=== PATIENT | female | born 1935 | race American Indian/Alaskan Native ===

== ENCOUNTER 2017-09-21 13:06 | Emergency (ER) | payer MEDICARE ==
[2017-09-21 13:12] VITALS: BMI 27.9
[2017-09-21 13:18] VITALS: BP 185/92; PULSE 79; TEMP 98.3; O2SAT 97
[2017-09-21 13:42] VITALS: RESP 16
--- NOTE | 2017-09-21 14:03 | RAD ---
Chest x-ray single frontal view History: Shortness of breath. Comparison: 08/24/2015 Findings: Mild patchy increased markings at the left lung base. Few small scattered nodular densities at the left lung base. Calcification at the aortic knob. Tortuous aorta. Degenerative changes in the spine and shoulders. Impression: Mild patchy increased markings at the left lung base. Few small scattered nodular densities at the left lung base. Calcification at the aortic knob. Tortuous aorta.
--- NOTE | 2017-09-21 14:14 | C.PDOC ---
History Of Present Illness 82 year old female with PMHx of anxiety presents to the ED seeking Xanax refill for her prescription that ran out. Patient came to the ED by taxi. Patient's record on [facility] was reviewed and showed patient had an extensive Xanax and Percocet record with Dr. Donovan and 3 other providers. Patient looks anxious, refused and blood tests. Time Seen by Provider: 09/21/17 13:35 Chief Complaint (Nursing): Shortness Of Breath History Per: Patient History/Exam Limitations: no limitations Onset/Duration Of Symptoms: Days Current Symptoms Are (Timing): Still Present Suicide/Self Injury Attempted (Context): None Modifying Factor(s): None Severity: None Associated Symptoms: Anxiety Recent travel outside of the [place]: No Additional History Per: Patient Past Medical History Reviewed: Historical Data, Nursing Documentation, Vital Signs Vital Signs: Last Vital Signs Temp 98.3 F 09/21/17 13:13 Pulse 79 09/21/17 13:13 Resp 16 09/21/17 13:39 BP 185/92 H 09/21/17 13:13 Pulse Ox 97 09/21/17 14:45 - Medical History PMH: Anemia, Anxiety, Arthritis, Depression, Diabetes, HTN, Hypercholesterolemia , Malignancy (Right breast cancer) Denies: Chronic Kidney Disease Surgical History: No Surg Hx - [facility] Procedures BREAST DX PROCEDURE NEC (01/05/13) CLOSED ENDOSCOPIC BIOPSY OF LARGE INTESTINE (11/02/12) ESOPHAGOGASTRODUODENOSCOPY [EGD] W/CLOSED BIOPSY (04/04/14) LOCAL EXCIS BREAST LES (01/05/13) OPEN BIOPSY OF BREAST (02/07/13) PERCUTAN NEEDLE BIOPSY OF BREAST (12/16/12) UNILAT SIMPLE MASTECTOMY (02/07/13) VENOUS CATHETERIZATION NEC (10/26/13) X-RAY NEC AND NOS (01/05/13) Family History: States: Unknown Family Hx - Social History Hx Tobacco Use: No Hx Alcohol Use: No Hx Substance Use: No - Immunization History Hx Tetanus Toxoid Vaccination: No Hx Influenza Vaccination: No Hx Pneumococcal Vaccination: Yes Review Of Systems Constitutional: Negative for: Fever, Chills Cardiovascular: Negative for: Chest Pain Respiratory: Negative for: Shortness of Breath Gastrointestinal: Negative for: Abdominal Pain Skin: Negative for: Rash Neurological: Negative for: Weakness, Numbness Psych: Positive for: Anxiety Physical Exam - Physical Exam Appears: Non-toxic, Other (Anxious) Skin: Normal Color, Warm, Dry Head: Atraumatic, Normacephalic Eye(s): bilateral: Normal Inspection Nose: No Discharge Oral Mucosa: Moist Neck: Normal ROM, Supple Chest: Symmetrical Cardiovascular: Rhythm Regular, No Murmur Respiratory: Normal Breath Sounds, No Rales, No Rhonchi, No Wheezing Gastrointestinal/Abdominal: Soft, No Tenderness, No Guarding, No Rebound Extremity: Normal ROM, No Tenderness, No Swelling Neurological/Psych: Oriented x3, Normal Speech, Normal Cognition Gait: Steady ED Course And Treatment O2 Sat by Pulse Oximetry: 97 (On RA) Pulse Ox Interpretation: Normal - Radiology CXR: Interpreted by Me, Viewed By Me CXR Interpretation: Yes: No Acute Disease. No: Infiltrates Medical Decision Making Medical Decision Making: Impression: anxiety Plan: * EKG * Labs * refused * CXR * Xanax 0.5 mg PO * UA * showed 19 WBCs Patient was discussed with Dr. Donovan who was OK with decline ED treatment, patient will f/u outpatient. Patient agrees to 10 tabs of xanax prescription with the understanding there are not refills provided in the ED dementia, xanax ran out of xanax, came by cab for a dose and refills (demonstrating purposeful high function) refusing workup and wants to be d/c immediately. ok w PMD to d/c and opt f/u. Disposition Doctor Will See Patient In The: Office Counseled Patient/Family Regarding: Studies Performed, Diagnosis - Disposition Referrals: Franco Donovan MD [Staff Provider] - Disposition: HOME/ ROUTINE Disposition Time: 14:12 Condition: GOOD Additional Instructions: please follow-up with Dr. Donovan for further treatment and evaluation Prescriptions: Alprazolam [Xanax] 0.5 mg PO BID PRN #10 tab PRN Reason: Anxiety Instructions: Anxiety, Adult (DC) Forms: [facility] (Upper Sorbian) - Clinical Impression Clinical Impression: Anxiety, Benzodiazepine withdrawal - Scribe Statement The provider has reviewed the documentation as recorded by the Scribe Sean Ríos All medical record entries made by the Scribe were at my direction and personally dictated by me. I have reviewed the chart and agree that the record accurately reflects my personal performance of the history, physical exam, medical decision making, and the department course for this patient. I have also personally directed, reviewed, and agree with the discharge instructions and disposition.
[2017-09-21 14:25] LABS: SQUAMOUS EPITHIAL 19 /hpf (0-5); URINE BACTERIA OCC (<OCC); URINE BILIRUBIN NEGATIVE (NEGATIVE); URINE BLOOD 1+ (NEGATIVE); URINE CLARITY Hazy (Clear); URINE COLOR Yellow (YELLOW); URINE GLUCOSE (UA) 1+ mg/dL (Normal); URINE LEUKOCYTE ESTERASE 3+ Leu/uL (Negative); URINE PROTEIN 2+ mg/dL (NEGATIVE); URINE UROBILINOGEN NORMAL mg/dL (0.2-1.0)
[2017-09-21 14:27] LABS: URINE AMORPHOUS SEDIMENT OCC /ul (<OCC)
[2017-09-21 14:38] LABS: BARBITURATES, UR NEGATIVE (NEGATIVE); BENZODIAZEPINES, UR NEGATIVE (NEGATIVE); OPIATES, UR NEGATIVE (NEGATIVE); PHENCYCLIDINE, UR NEGATIVE (NEGATIVE)
--- NOTE | 2017-09-22 11:17 | CARD ---
APPROVED REPORT EKG Measurement Heart [id number] [id number] [id number] <Conclusion> Sinus rhythm with marked sinus arrhythmia Moderate voltage criteria for LVH, may be normal variant Borderline ECG
== END 2017-09-21 14:25 | disposition home or self-care (01) ==
LOC: C.ER 13:06
DX: F41.9 Anxiety disorder, unspecified (principal); F19.939 Other psychoactive substance use, unspecified with withdrawal, unspecified; I10 Essential (primary) hypertension; E11.9 Type 2 diabetes mellitus without complications; Z87.891 Personal history of nicotine dependence
CPT/HCPCS: 71045; 81001; 93005; 99284; G0480

== ENCOUNTER 2018-03-02 15:39 | Inpatient (IN) | payer MEDICARE ==
[2018-03-02 16:23] VITALS: BMI 30.9
--- NOTE | 2018-03-02 16:36 | C.PDOC ---
Time Seen by Provider: 03/02/18 15:45 Chief Complaint (Nursing): Dizziness/Lightheaded Past Medical History Vital Signs: Last Vital Signs Temp 98.8 F 03/02/18 15:51 Pulse 71 03/02/18 16:15 Resp 20 03/02/18 16:15 BP 156/84 H 03/02/18 16:15 Pulse Ox 98 03/02/18 16:15 - Medical History PMH: Anemia, Anxiety, Arthritis, Depression, Diabetes, HTN, Hypercholesterolemia , Malignancy (Right breast cancer) Denies: Chronic Kidney Disease - [facility] Procedures BREAST DX PROCEDURE NEC (01/05/13) CLOSED ENDOSCOPIC BIOPSY OF LARGE INTESTINE (11/02/12) ESOPHAGOGASTRODUODENOSCOPY [EGD] W/CLOSED BIOPSY (04/04/14) LOCAL EXCIS BREAST LES (01/05/13) OPEN BIOPSY OF BREAST (02/07/13) PERCUTAN NEEDLE BIOPSY OF BREAST (12/16/12) UNILAT SIMPLE MASTECTOMY (02/07/13) VENOUS CATHETERIZATION NEC (10/26/13) X-RAY NEC AND NOS (01/05/13) Family History: States: Unknown Family Hx - Social History Hx Tobacco Use: No Hx Alcohol Use: No Hx Substance Use: No - Immunization History Hx Tetanus Toxoid Vaccination: No Hx Influenza Vaccination: No Hx Pneumococcal Vaccination: Yes ED Course And Treatment O2 Sat by Pulse Oximetry: 98 Disposition - Disposition Forms: [facility] (Azeri)
--- NOTE | 2018-03-02 16:38 | C.PDOC ---
History Of Present Illness 83-year-old female, PMHx includes Hypertension, hypercholesterolemia and mastectomy, presents to the emergency department with complaints of dizziness and light headedness. Pt is noted to be more confused by staff respiratory therapist. Patient is currently complaining of headache since she took medication last night, given to her by PMD. She denies any shortness of breath, nausea/vomiting, abdominal pain, numbness/weakness or any other associated symptoms. No other complaints at this time. Time Seen by Provider: 03/02/18 15:45 Chief Complaint (Nursing): Dizziness/Lightheaded Past Medical History Reviewed: Historical Data, Nursing Documentation, Vital Signs Vital Signs: Last Vital Signs Temp 98.8 F 03/02/18 15:51 Pulse 71 03/02/18 16:15 Resp 20 03/02/18 16:15 BP 156/84 H 03/02/18 16:15 Pulse Ox 98 03/02/18 17:53 - Medical History PMH: Anemia, Anxiety, Arthritis, Depression, Diabetes, HTN, Hypercholesterolemia , Malignancy (Right breast cancer) Denies: Chronic Kidney Disease - [facility] Procedures BREAST DX PROCEDURE NEC (01/05/13) CLOSED ENDOSCOPIC BIOPSY OF LARGE INTESTINE (11/02/12) ESOPHAGOGASTRODUODENOSCOPY [EGD] W/CLOSED BIOPSY (04/04/14) LOCAL EXCIS BREAST LES (01/05/13) OPEN BIOPSY OF BREAST (02/07/13) PERCUTAN NEEDLE BIOPSY OF BREAST (12/16/12) UNILAT SIMPLE MASTECTOMY (02/07/13) VENOUS CATHETERIZATION NEC (10/26/13) X-RAY NEC AND NOS (01/05/13) Family History: States: No Known Family Hx - Social History Hx Tobacco Use: No Hx Alcohol Use: No Hx Substance Use: No - Immunization History Hx Tetanus Toxoid Vaccination: No Hx Influenza Vaccination: No Hx Pneumococcal Vaccination: Yes Review Of Systems Constitutional: Negative for: Fever Cardiovascular: Positive for: Light Headedness Respiratory: Negative for: Shortness of Breath Gastrointestinal: Negative for: Nausea, Vomiting, Abdominal Pain Neurological: Positive for: Headache, Dizziness Physical Exam - Physical Exam Appears: Non-toxic, No Acute Distress Skin: Normal Color, Warm, Dry, No Rash Head: Atraumatic, Normacephalic Eye(s): bilateral: Normal Inspection, PERRL Nose: Normal Oral Mucosa: Moist Lips: Normal Appearing Neck: Normal ROM Cardiovascular: Rhythm Regular, No Murmur Respiratory: Normal Breath Sounds, No Accessory Muscle Use Gastrointestinal/Abdominal: Soft, No Tenderness Neurological/Psych: Normal Speech, Normal Cranial Nerves, No Cerebellar Signs, Normal Motor, Normal Sensation, Other (A&Ox2. ) ED Course And Treatment - Laboratory Results Result Diagrams: 03/02/18 17:23 03/02/18 17:23 ECG: Interpreted By Me, Viewed By Me ECG Rhythm: Sinus Rhythm ECG Interpretation: No Acute Changes Rate From EC O2 Sat by Pulse Oximetry: 98 (RA) Pulse Ox Interpretation: Normal - CT Scan/US CT head Other Rad Studies (CT/US): Read By Radiologist, Radiology Report Reviewed CT/US Interpretation: Accession No. : [id number]. Patient Name / ID : MIGEL HERRERA / [id number]. Exam Date : 03/02/2018 16:31:40 ( Approved ). Study Comment : Sex / Age : F / 83Y. Creator : Rosemary Sutherland. Dictator : Joseph Frost MD. Shaker Operator : Stock Drier Tender : Joseph Frost MD. Approver2 : Report Date : 03/02/2018 16:36:52. My Comment : . Date of service: 03/02/2018. PROCEDURE: CT HEAD WITHOUT CONTRAST. HISTORY: Code Stroke. COMPARISON: Comparison made with prior CT scan brain 08/24/2015. TECHNIQUE: Axial computed tomography images were obtained through the head/ brain without intravenous contrast. Radiation dose: Total exam DLP = 981.02 mGy-cm. This CT exam was performed using one or more of the following dose reduction techniques: Automated exposure control, adjustment of the mA and/or kV according to patient size, and/or use of iterative reconstruction technique. FINDINGS: HEMORRHAGE: No acute parenchymal, subarachnoid or extra-axial hemorrhage. BRAIN: Re- demonstrated are mild diffuse/confluent chronic periventricular white matter ischemic changes that extend peripherally into the deep and to a lesser degree subcortical white matter both cerebral hemispheres. . There may be some extension of these changes into the white matter tracts of both basal nuclei. Note that the possibility of a small hyperacute infarct cannot be excluded on this exam. Clinical correlation recommended. No obvious parenchymal nor extra-axial mass or collection of identified on this noncontrast study. Moderate generalized volume loss. Mild vascular calcifications both carotid siphons. VENTRICLES: Unremarkable. No hydrocephalus. CALVARIUM: Unremarkable. PARANASAL SINUSES: .Frontal sinuses are hypoplastic the on the left and atretic on the right. No significant mucoperiosteal inflammatory changes. MASTOID AIR CELLS: Unremarkable as visualized. No inflammatory changes. OTHER FINDINGS: None. IMPRESSION: Re- demonstrated are mild diffuse/confluent chronic periventricular white matter ischemic changes that extend peripherally into the deep and to a lesser degree subcortical white matter both cerebral hemispheres. . There may be some extension of these changes into the white matter tracts of both basal nuclei. Note that the possibility of a small hyperacute infarct cannot be excluded on this exam. Clinical correlation recommended. Moderate generalized volume loss. Findings discussed with Dr. Goodwin at approximately 4:42 p.m. with written down and read back verification. NIHSS Stroke Scale 2 - How Severe is the Stroke Level of Consciousness: 0=Alert LOC to Questions: 0=Both comments correct LOC to commands: 0=Obeys both correctly Best Gaze: 0=Normal Visual: 0=No visual loss Facial: 0=Normal Motor Arm - Left: 0=No drift Motor Arm - Right: 0=No drift Motor Leg - Left: 0=No drift Motor Leg - Right: 0=No drift Limb Ataxia: 0=Absent Sensory: 0=Normal Best Language: 0=No aphasia Dysarthia: 0=Normal articulation Extinction & Inattention (Neglect): 0=Normal, no object Score: 0 Medical Decision Making Medical Decision Making: Code stroke called upon pts arrival. Per RN, patient was noted to have been complaining of dizziness and may have been AOX3. Upon my examination pt is AOx2 , but otherwise MAEW. 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 Case discussed with PMD, Dr Donovan, states pt is tangential and moderately confused at baseline. Given this is likely her baseline status, will re-consult Dr. Blount. CT w/ out indication of stroke NIHSS 0 Risks outweight benefits of TPA Upon re-eval of pt- she only notes a RUIZ which started in the afternoon, not worst of life and not sudden in onset. No FND. No nausea or vomiting. No falls. No current AC usage- only uses ASA. Case discussed with Dr Blount, given additional information pts hx of being tangential and baseline confusion, low NIHSS of 0, pt is not tPA candidate, recc EEG Case discussed with Dr Donovan, states he will admit pt under his service for observation Disposition - Disposition Disposition Time: 17:45 Condition: GOOD - Clinical Impression Clinical Impression: Headache - Scribe Statement The provider has reviewed the documentation as recorded by the Scribe (Justine Zee) Provider Attestation: All medical record entries made by the Scribe were at my direction and personally dictated by me. I have reviewed the chart and agree that the record accurately reflects my personal performance of the history, physical exam, medical decision making, and the department course for this patient. I have also personally directed, reviewed, and agree with the discharge instructions and disposition.
--- NOTE | 2018-03-02 16:47 | CT ---
Date of service: 03/02/2018 PROCEDURE: CT HEAD WITHOUT CONTRAST. HISTORY: Code Stroke COMPARISON: Comparison made with prior CT scan brain 08/24/2015. TECHNIQUE: Axial computed tomography images were obtained through the head/brain without intravenous contrast. Radiation dose: Total exam DLP = 981.02 mGy-cm. This CT exam was performed using one or more of the following dose reduction techniques: Automated exposure control, adjustment of the mA and/or kV according to patient size, and/or use of iterative reconstruction technique. FINDINGS: HEMORRHAGE: No acute parenchymal, subarachnoid or extra-axial hemorrhage. BRAIN: Re- demonstrated are mild diffuse/confluent chronic periventricular white matter ischemic changes that extend peripherally into the deep and to a lesser degree subcortical white matter both cerebral hemispheres. . There may be some extension of these changes into the white matter tracts of both basal nuclei. Note that the possibility of a small hyperacute infarct cannot be excluded on this exam. Clinical correlation recommended. No obvious parenchymal nor extra-axial mass or collection of identified on this noncontrast study. Moderate generalized volume loss. Mild vascular calcifications both carotid siphons. VENTRICLES: Unremarkable. No hydrocephalus. CALVARIUM: Unremarkable. PARANASAL SINUSES: .Frontal sinuses are hypoplastic the on the left and atretic on the right. No significant mucoperiosteal inflammatory changes. MASTOID AIR CELLS: Unremarkable as visualized. No inflammatory changes. OTHER FINDINGS: None. IMPRESSION: Re- demonstrated are mild diffuse/confluent chronic periventricular white matter ischemic changes that extend peripherally into the deep and to a lesser degree subcortical white matter both cerebral hemispheres. . There may be some extension of these changes into the white matter tracts of both basal nuclei. Note that the possibility of a small hyperacute infarct cannot be excluded on this exam. Clinical correlation recommended. Moderate generalized volume loss. Findings discussed with Dr. Goodwin at approximately 4:42 p.m. with written down and read back verification.
[2018-03-02] MEDS ORDERED: Sodium Chloride 0.9% 1,000 ML IV SCH (17:15)
[2018-03-02] MEDS ORDERED: Sodium Chloride 0.9% 1,000 ML ONE (17:31)
[2018-03-02 17:32] LABS: BASO % 0.4 % (0.0-2.0); EOS # 0.3 K/uL (0.0-0.7); EOS % 3.1 % (0.0-4.0); HEMOGLOBIN 12.7 g/dL (11.0-16.0); LYMPH # 2.7 K/uL (1.0-4.3); LYMPH % 29.4 % (20.0-40.0); MEAN CELL VOLUME 83.8 fL (81.0-99.0); MEAN CORPUSCULAR HEMOGLOBIN 28.5 pg (27.0-31.0); MEAN CORPUSCULAR HGB CONC 34.1 g/dL (33.0-37.0); MEAN PLATELET VOLUME 8.1 fL (7.2-11.7); MONO # 0.8 K/uL (0.0-0.8); MONO % 8.4 % (0.0-10.0); NEUT # 5.5 K/uL (1.8-7.0); NEUT % 58.7 % (50.0-75.0); NRBC % 0.3 % (0.0-2.0); RBC 4.45 Mil/uL (3.80-5.20); RED CELL DISTRIBUTION WIDTH 14.5 % (11.5-14.5); WHITE BLOOD COUNT 9.3 K/uL (4.8-10.8)
[2018-03-02 17:40] LABS: BLOOD UREA NITROGEN 12 mg/dL (7-17); GFR NON-AFRICAN AMERICAN > 60; HDL CHOLESTEROL 76 mg/dL (30-70)
[2018-03-02 17:43] LABS: ALB/GLOB RATIO 1.4 (1.0-2.1); ALBUMIN 4.4 g/dL (3.5-5.0); ALT/SGPT 16 U/L (9-52); AST/SGOT 29 U/L (14-36)
[2018-03-02 17:51] LABS: LDL CHOLESTEROL 81 mg/dL (0-129)
--- NOTE | 2018-03-02 18:15 | RAD ---
Date of service: 03/02/2018 HISTORY: Code Stroke COMPARISON: 09/21/2017. FINDINGS: LUNGS: No active pulmonary disease. PLEURA: No significant pleural effusion identified, no pneumothorax apparent. CARDIOVASCULAR: No radiographic findings to suggest acute or significant cardiovascular disease. OSSEOUS STRUCTURES: No significant abnormalities. VISUALIZED UPPER ABDOMEN: Normal. OTHER FINDINGS: None. IMPRESSION: No active disease. No significant interval change compared to the prior examination(s).
[2018-03-02] MEDS ORDERED: Glucagon Recombinant 1 mg Inj IM PRN (20:21)
[2018-03-02] MEDS ORDERED: Dextrose 50% SYRINGE Inj (50 ml) IV PRN (20:21)
[2018-03-02] MEDS ORDERED: Oxycodone/Acetaminophen 5/325 mg Tab PO PRN (20:25)
[2018-03-02] MEDS: (Novolog) Insulin Aspart, Recombinant 100 u/ml 10 ml vial SC SCH (22:00)
[2018-03-03 07:34] LABS: SQUAMOUS EPITHIAL 21 /hpf (0-5); URINE BACTERIA OCC (<OCC); URINE BILIRUBIN NEGATIVE (NEGATIVE); URINE BLOOD 1+ (NEGATIVE); URINE CLARITY Hazy (Clear); URINE COLOR Yellow (YELLOW); URINE GLUCOSE (UA) NORMAL (Normal); URINE LEUKOCYTE ESTERASE 3+ Leu/uL (Negative); URINE PROTEIN 1+ mg/dL (NEGATIVE); URINE UROBILINOGEN NORMAL mg/dL (0.2-1.0)
--- NOTE | 2018-03-03 07:34 | CP.PCM.CON ---
History of Present Illness - History of Present Illness History of Present Illness: consULT DICATATED DIZZY/ ? HEADACHE AND RIGHT LEG WEAKNESS AND PAIN RIGHT LEG EXT ROTATED PLANTARS UP ON HER LEFT DEMENTIA NEW LEFT SUBCORTICAL AND OLD LEFT SUBCORTICAL DYSFUNCTION MRI BRAIN STROKE PROPHYLAXIS PT Past Patient History - Infectious Disease Hx of Infectious Diseases: None - Past Medical History & Family History Past Medical History?: Yes - Past Social History Smoking Status: Former Smoker - CARDIAC Hx Hypercholesterolemia: Yes Hx Hypertension: Yes - NEUROLOGICAL Hx Neurological Disorder: No - HEENT Hx HEENT Problems: Yes Other/Comment: wears reading glasses,glasses at home. - RENAL Hx Chronic Kidney Disease: No - ENDOCRINE/METABOLIC Hx Endocrine Disorders: Yes Hx Diabetes Mellitus Type 2: Yes - HEMATOLOGICAL/ONCOLOGICAL Hx Anemia: Yes - INTEGUMENTARY Hx Dermatological Problems: No - MUSCULOSKELETAL/RHEUMATOLOGICAL Hx Arthritis: Yes - GASTROINTESTINAL Hx Gastrointestinal Disorders: Yes Hx Gastroesophageal Reflux: Yes - GENITOURINARY/GYNECOLOGICAL Hx Genitourinary Disorders: No - PSYCHIATRIC Hx Anxiety: Yes Hx Depression: Yes Hx Substance Use: No - SURGICAL HISTORY Hx Breast Biopsy: Yes Hx Cardiac Catheterization: Yes Hx Mastectomy: Yes (L PARTIAL AND RIGHT COMPLETE MASTECTOMY) Hx Orthopedic Surgery: Yes (Back surgery) Other/Comment: R arm/shoulder surgery - ANESTHESIA Hx Anesthesia: Yes Hx Anesthesia Reactions: No Hx Malignant Hyperthermia: No Meds Allergies/Adverse Reactions: Allergies Allergy/AdvReac Type Severity Reaction Status Date / Time asparagus Allergy RASH Verified 03/02/18 16:23 atorvastatin Allergy unknown Verified 03/02/18 16:23 - Medications Medications: Current Medications Alprazolam (Xanax) 1 mg PO BID PRN PRN Reason: Anxiety Amlodipine Besylate (Norvasc) 5 mg PO DAILY [facility] Aspirin (Ecotrin) 81 mg PO DAILY [facility] Bisoprolol Fumarate (Zebeta) 5 mg PO DAILY [facility] Dextrose (Dextrose 50% Inj) 0 ml IV STAT PRN; Protocol PRN Reason: Hypoglycemia Protocol Dextrose (Glutose 15) 0 gm PO ONCE PRN; Protocol PRN Reason: Hypoglycemia Protocol Donepezil HCl (Aricept) 5 mg PO HS [facility] Last Admin: 03/02/18 23:10 Dose: 5 mg Glucagon (Glucagen Diagnostic Kit) 0 mg IM STAT PRN; Protocol PRN Reason: Hypoglycemia Protocol Home Med (Meloxicam [Mobic]) 7.5 mg PO BID [facility] Home Med (Omeprazole [Omeprazole]) 20 mg PO DAILY [facility] Hydrochlorothiazide (Microzide) 12.5 mg PO HS [facility] Last Admin: 03/02/18 21:04 Dose: 12.5 mg Dextrose (Dextrose 5% In Water 1000 Ml) 1,000 mls @ 0 mls/hr IV .Q0M PRN; Protocol; Per Protocol PRN Reason: Hypoglycemia Protocol Insulin Aspart (Novolog) 0 unit SC ACHS [facility] PRN Reason: Protocol Last Admin: 03/02/18 22:00 Dose: 1 unit Losartan Potassium (Cozaar) 100 mg PO HS [facility] Last Admin: 03/02/18 21:04 Dose: 100 mg Metformin HCl (Glucophage) 500 mg PO DAILY [facility] Oxycodone/Acetaminophen (Percocet 5/325 Mg Tab) 1 tab PO BID PRN PRN Reason: Pain, moderate (4-7) Stop: 03/05/18 20:26 Results - Vital Signs Recent Vital Signs: Last Vital Signs Temp 97.5 F L 03/02/18 23:25 Pulse 71 03/02/18 23:30 Resp 20 03/02/18 23:25 BP 165/79 H 03/02/18 23:25 Pulse Ox 97 03/02/18 23:25 - Labs Result Diagrams: 03/02/18 17:23 03/02/18 17:23 Labs: Laboratory Results - last 24 hr 03/02/18 03/02/18 03/02/18 16:12 17:23 17:23 WBC 9.3 RBC 4.45 Hgb 12.7 Hct 37.3 MCV 83.8 MCH 28.5 MCHC 34.1 RDW 14.5 Plt Count 222 MPV 8.1 Neut % (Auto) 58.7 Lymph % (Auto) 29.4 Otoe % (Auto) 8.4 Eos % (Auto) 3.1 Baso % (Auto) 0.4 Neut # (Auto) 5.5 Lymph # (Auto) 2.7 [place] # (Auto) 0.8 Eos # (Auto) 0.3 Baso # (Auto) 0.0 Sodium 135 Potassium 3.7 Chloride 99 Carbon Dioxide 23 Anion Gap 17 BUN 12 Creatinine 0.6 L Est GFR ( Amer) > 60 Est GFR (Non-Af Amer) > 60 POC Glucose (mg/dL) 99 Random Glucose 102 Calcium 10.0 Total Bilirubin 1.6 H AST 29 ALT 16 Alkaline Phosphatase 60 Troponin I 0.0140 Total Protein 7.5 Albumin 4.4 Globulin 3.2 Albumin/Globulin Ratio 1.4 Triglycerides 135 Cholesterol 190 LDL Cholesterol Direct 81 HDL Cholesterol 76 H
[2018-03-03] MEDS: (Novolog) Insulin Aspart, Recombinant 100 u/ml 10 ml vial SC SCH ×4 (07:55→21:36)
[2018-03-03] MEDS: Pantoprazole 40 mg EC Tab PO SCH (10:31)
[2018-03-03] MEDS: Home Med 1 UNIT (Meloxicam [Mobic] 7.5 MG) PO SCH ×2 (11:48→17:40)
[2018-03-03 11:52] LABS: FREE T4 0.98 ng/dL (0.78-2.19)
--- NOTE | 2018-03-03 12:53 | CARD ---
APPROVED REPORT Date of service: 03/02/2018 EKG Measurement Heart [id number] <Conclusion> Normal sinus rhythm Minimal voltage criteria for LVH, may be normal variant Nonspecific T wave abnormality Abnormal ECG
--- NOTE | 2018-03-03 15:49 | VASCLAB ---
Date of service: 03/03/2018 PROCEDURE: HISTORY: assess stenosis COMPARISON: None available. TECHNIQUE: Grayscale and duplex Doppler evaluation of the cervical carotid and vertebral arteries were performed. The common carotid, carotid bifurcations and cervical Internal Carotid Artery (ICA) and proximal External Carotid Artery (ECA) were evaluated. The vertebral arteries were evaluated for gross patency and flow direction. Report prepared by AJ Nguyen FINDINGS: RIGHT CAROTID ARTERIES: 1. Common Carotid Artery: No significant focal plaque formation of the right common carotid artery. Maximum Peak Systolic velocity: 48 cm/sec: End-diastolic velocity 0 cm/sec. 2. Carotid Bifurcation: plaque formation. Maximum Peak Systolic velocity: 39 cm/sec: End-diastolic velocity 6 cm/sec. 3. Internal Carotid Artery: Plaque description: 3.1. Proximal Segment: Peak systolic velocity 57 cm/sec: End-diastolic velocity 14 cm/sec - % stenosis 0-15% 3.2. Middle Segment: Peak systolic velocity 45 cm/sec: End-diastolic velocity 10 cm/sec - % stenosis 0-15% 3.3. Distal Segment: Peak systolic velocity 111 cm/sec: End-diastolic velocity 26 cm/sec - % stenosis 0-15% 4. External Carotid Artery: No significant focal plaque formation. Peak systolic velocity 54 cm/sec 5. ICA/CCA Ratio: 2.3 LEFT CAROTID ARTERIES: 1. Common Carotid Artery: No significant focal plaque formation of the left common carotid artery. Maximum Peak Systolic velocity: 52 cm/sec: End-diastolic velocity 9 cm/sec. 2. Carotid Bifurcation: plaque formation. Maximum Peak Systolic velocity: 30 cm/sec: End-diastolic velocity 5 cm/sec. 3. Internal Carotid Artery: Plaque description: 3.1. Proximal Segment: Peak systolic velocity 108 cm/sec: End-diastolic velocity 20 cm/sec - % stenosis 0-15% 3.2. Middle Segment: Peak systolic velocity 52 cm/sec: End-diastolic velocity 15 cm/sec - % stenosis 0-15% 3.3. Distal Segment: Peak systolic velocity 62 cm/sec: End-diastolic velocity 17 cm/sec - % stenosis 0-15% 4. External Carotid Artery: No significant focal plaque formation. Peak systolic velocity 47 cm/sec 5. ICA/CCA Ratio: 2.1 VERTEBRAL ARTERIES: 1. Right Vertebral Artery: The right vertebral artery flow direction is antegrade. 2. Left Vertebral Artery: The left vertebral artery flow direction is antegrade. OTHER FINDINGS: 1. Right Brachial Blood pressure: 160 mmHg. 2. Left Brachial Blood pressure: 160 mmHg. IMPRESSION: RIGHT: Duplex scan does not suggest hemodynamically significant stenosis of the right extracranial carotid arteries. LEFT: Duplex scan does not suggest hemodynamically significant stenosis of the left extracranial carotid arteries.
--- NOTE | 2018-03-03 20:33 | CON ---
DATE: 03/03/2018 LOCATION: The patient is in room #657, bed B. REASON FOR CONSULTATION: Dizziness and headache. CHIEF COMPLAINT: The patient was brought into [facility] with history of dizziness and headache. From neurological point of view, I was called in to evaluate her for further management. HISTORY OF PRESENT ILLNESS: Ms. Dariel Owen is an 83-year-old thinly-built right-handed female presenting with lightheadedness and headache with leg discomfort for the last few days. She did have injection of the right knee, being told that she did have arthritis, which has not been helping her at present. Headache is somewhat minimal, not bothering her; however, the dizziness is persistent. The dizziness is not associated with double vision, visual or bulbar dysfunction. She could not able to walk the way she was before. She denies nausea or vomiting, abdominal pain, or headache at present. PAST MEDICAL HISTORY: Anemia, anxiety, arthritis, depression, diabetes, hypertension, dyslipidemia, right breast cancer in the past being operated. PERSONAL HISTORY: Denies smoking or alcohol use. ALLERGIES: NO KNOWN ALLERGIES. REVIEW OF SYSTEMS: A 12-point system being reviewed. From neuro, new dizziness and right leg discomfort. PHYSICAL EXAMINATION: VITAL SIGNS: Blood pressure 150/82, mean arterial pressure of 104, respiratory rate 18, pulse rate 75 and regular, temperature 98.1 degrees Fahrenheit. NECK: Supple. No carotid bruits. HEART: Sounds regular. CHEST: Fair air entry. EXTREMITIES: No edema. NEUROLOGIC: Mental Status: She is awake, alert, and oriented to person and place. Speech; however, is disturbed as she could not able to make proper communication; however, the speech is complete. Naming and repetition is intact. She knows she is in the hospital. Cranial nerve: Visual field responds to visual therapy. Pupils reactive to light. Extraocular movements normal. No nystagmus. No facial sensory deficit. No facial asymmetry. is normal. Tongue is midline. Good gag. Motor: On outstretched hand with eyes closed, no drift noted. Power is symmetric on either side. Right leg is externally rotated. Left leg is increased tone. Sensory: Grossly intact. No cortical sensory loss. Coordination, [id number] test shows mild dysmetria on both sides. CONCLUSION: As per neurological examination, the patient shows some evidence of possible left subcortical dysfunction manifesting with right leg weakness and clinical examination shows right leg externally rotated. In the absence of fracture in the neck of the femur, this probably is left subcortical dysfunction. It could be either anterior cerebral artery distribution or tributaries of middle cerebral artery territory. The patient also showed evidence of right subcortical dysfunction manifesting at the old left hemiparesis. There is evidence of mild distal sensory motor neuropathy also. WORKUP: CT of the head being reviewed showed periventricular ischemic changes and both basal ganglia infarct noted. BLOOD WORKUP: WBC 9.3, hemoglobin 12.7, hematocrit 37.3, platelet 232. Sodium 135, potassium 3.7, chloride 99, bicarbonate 23, BUN 12, creatinine 0.6, GFR more than 60, glucose 99, bilirubin 1.6, cholesterol 190, LDL 81, HDL 76. Urine shows significant abnormal findings including wbc's, rbc's, squamous cells. RECOMMENDATION: 1. Continue stroke prophylaxis where she has been getting at present. 2. The clinical examination does not show evidence of giant cell arthritis; however, she needs workup for the same. 3. MRI of the brain and carotid Doppler to be done to rule out any possible thrombogenesis. 4. If echo is not done, echo should be done. 5. Physical therapy is recommended. The patient will be followed closely with you. Carmelo Montgomery MD
--- NOTE | 2018-03-03 21:57 | CARD ---
APPROVED REPORT Date of service: 03/03/2018 EXAM: Two-dimensional and M-mode echocardiogram with Doppler and color Doppler. Other Information Quality : GoodRhythm : INDICATION Dizziness and Vertigo Chest Pain RISK FACTORS Hypertension Hyperlipidemia Diabetes 2D DIMENSIONS IVSd1.1 (0.7-1.1cm)LVDd3.8 (3.9-5.9cm) PWd1.2 (0.7-1.1cm)LVDs2.1 (2.5-4.0cm) FS (%) 43.7 %LVEF (%)70.0 (>50%) M-Mode DIMENSIONS RVDd1.21 (2.1-3.2cm)Left Atrium (MM)4.08 (2.5-4.0cm) IVSd0.80 (0.7-1.1cm)Aortic Root3.34 (2.2-3.7cm) LVDd4.82 (4.0-5.6cm)Aortic Cusp Exc.2.17 (1.5-2.0cm) PWd1.01 (0.7-1.1cm)FS (%) 33 % LVDs3.23 (2.0-3.8cm)LVEF (%)62 (>50%) Aortic Valve AI P 1/2 [id number] Mitral Valve MV E Mutrfxkt45.5cm/sMV A Gooojmhg77.2cm/sE/A ratio0.5 PISA0.41 cm TDI E/Lateral E'0.0E/Medial E'0.0 Tricuspid Valve TR Peak [id number]/sTR Peak Gr.[id number] LEFT VENTRICLE The left ventricle is normal size. There is mild concentric left ventricular hypertrophy. Left ventricle systolic function is normal. The Ejection Fraction is 65-70%. There is normal LV segmental wall motion. Transmitral Doppler flow pattern is Grade I-abnormal relaxation pattern. There is no ventricular septal defect visualized. RIGHT VENTRICLE The right ventricle is normal size. The right ventricular systolic function is normal. ATRIA The left atrium is mildly dilated. The right atrium size is normal. AORTIC VALVE The aortic valve is mildly to moderately sclerotic. The aortic valve is tri-cuspid. There is mild to moderate aortic regurgitation. There is no aortic valvular stenosis. MITRAL VALVE Mitral annular calcification is borderline. There is no evidence of mitral valve prolapse. Mitral regurgitation is trace. ERO 0.1 cm2 TRICUSPID VALVE The tricuspid valve is normal in structure. There is trace tricuspid regurgitation. Right ventricular systolic pressure is estimated at less than 30 mmHg. There is no pulmonary hypertension. PULMONIC VALVE The pulmonary valve is normal in structure. There is trace pulmonic valvular regurgitation. GREAT VESSELS The aortic root is normal in size. The ascending aorta is normal in size. The IVC is normal in size and collapses >50% with inspiration. PERICARDIAL EFFUSION There is no pericardial effusion. <Conclusion> There is mild concentric left ventricular hypertrophy. Left ventricle systolic function is normal. The Ejection Fraction is 65-70%. Transmitral Doppler flow pattern is Grade I-abnormal relaxation pattern. There is mild to moderate aortic regurgitation. Mitral regurgitation is trace. ERO 0.1 cm2
--- NOTE | 2018-03-04 05:10 | HP ---
HISTORY OF PRESENT ILLNESS: The patient is an 83-year-old female with history of multiple medical problems including hypertension, hypercholesterolemia, type 2 diabetes mellitus and cancer of breast, status post right mastectomy. The patient was brought to emergency room as she was complaining of dizziness and becoming more confused. The patient was evaluated in the emergency room and initial CAT scan showed no acute infarction but diffuse white matter changes. The patient had a code stroke but no tPA was given. The patient was further admitted for further management and evaluation. Other review of systems is negative. ALLERGIES: POSITIVE FOR ASPERGILLOSIS AND ATORVASTATIN. MEDICAL HISTORY: Hypertension, hypercholesterolemia, cancer of breast, status post right mastectomy, osteoarthritis, type 2 diabetes mellitus. SOCIAL HISTORY: No history of smoking, EtOH, or substance abuse. FAMILY HISTORY Noncontributory. MEDICATIONS: Reviewed as per MAR and medications were ordered. PHYSICAL EXAMINATION: GENERAL: The patient was not in any cardiopulmonary distress at the time of this examination. VITAL SIGNS: Blood pressure 150/82, temperature 98.1, respiratory rate 20, and pulse 75. HEENT: Pupils equal and reactive to light. Normal-appearing mucosa of the conjunctivae, oropharynx, and nasal membrane mucosa. NECK: Supple. No JVD. No carotid bruit. No lymph node. No thyromegaly. CHEST AND LUNGS: Bilateral symmetrical expansion. Good air exchange. No rales, no rhonchi. CARDIOVASCULAR SYSTEM: PMI not localized. S1, S2. No additional sounds. ABDOMEN: Normoactive bowel sounds. No tenderness. No organomegaly. No masses. EXTREMITIES: No cyanosis, no clubbing, no edema. SOUND ENGINEER AUDIO CONTROL: Alert, awake, oriented x1. She is disoriented to time to place and to time but oriented to persons. The patient has right side that is weaker than the left side with some is weaker than the right side. ASSESSMENT: 1. Right-sided weakness with confusion, dizziness, and disorientation. Rule out cerebrovascular disease as a cause of the patient's presentation. 2. Type 2 diabetes mellitus. 3. Hypertension. 4. Cancer of breast, status post right mastectomy. PLAN: We will do neuro check every 4 hours. Neurology consult and follow recommendations. Continue aspirin and Crestor. Accu-Cheks with insulin coverage. Fall precautions, physical therapy. [facility] MD [facility] # [id number]
[2018-03-04] MEDS: (Novolog) Insulin Aspart, Recombinant 100 u/ml 10 ml vial SC SCH ×4 (07:30→21:33)
[2018-03-04] MEDS: Pantoprazole 40 mg EC Tab PO SCH (09:52)
[2018-03-04] MEDS ORDERED: Home Med 1 UNIT (Meloxicam [Mobic] 7.5 MG) PO SCH (10:00)
--- NOTE | 2018-03-04 11:47 | PN ---
DATE: 03/04/2018 TIME OF EVALUATION: 07:20 a.m. 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 PHYSICAL EXAMINATION: VITAL SIGNS: Blood pressure 153/64, mean arterial pressure of 93, respiratory rate 18, pulse rate 56 and regular, temperature 97.5. The patient is ambulatory at present on her own. No new complaints. Examination which is unchanged to compare with my previous examination. WORKUP: Carotid Doppler does not show any significant stenosis. Echocardiogram results have been reviewed. Recommended MRI of the brain is still pending. PLAN: Continue the present management. The patient will be followed closely with you. Carmelo Montgomery MD
--- NOTE | 2018-03-04 15:13 | MRI ---
Date of service: 03/04/2018 PROCEDURE: MRI BRAIN WITHOUT CONTRAST HISTORY: r/o intracranial path COMPARISON: None available. TECHNIQUE: Multiplanar, multisequence MR images of the brain were obtained without intravenous contrast enhancement. FINDINGS: HEMORRHAGE: None DWI: No evidence of an acute or early subacute infarction. BRAIN PARENCHYMA: No mass effect or edema. Mild atrophy and minimal chronic periventricular white matter ischemic disease. VENTRICLES: Unremarkable. No hydrocephalus. CRANIUM: Unremarkable. ORBITS: Grossly unremarkable. PARANASAL SINUSES/MASTOIDS: Clear VASCULAR SYSTEM: Skull base flow voids intact. OTHER FINDINGS: None. IMPRESSION: Mild atrophy and minimal chronic periventricular white matter ischemic disease.
--- NOTE | 2018-03-04 23:27 | PN ---
DATE: 03/04/2018 SUBJECTIVE: The patient is seen today, 03/04/2018. She is not in any cardiopulmonary distress. The patient is seen today by Neurology. PHYSICAL EXAMINATION: VITAL SIGNS: Blood pressure 132/78, temperature 98.9, respiratory rate 20, and pulse 90. HEENT: Pupils equal, and reactive to light. Normal-appearing mucosa of the conjunctivae, oropharynx, and nasal membrane mucosa. NECK: Supple. No JVD. No carotid bruit. No lymph node. No thyromegaly. CHEST AND LUNGS: Bilateral symmetrical expansion. Good air exchange. No rales, no rhonchi. CARDIOVASCULAR SYSTEM: PMI not localized. S1, S2. No additional sounds. ABDOMEN: Normoactive bowel sounds. No tenderness. No organomegaly. No masses. EXTREMITIES: No cyanosis, no clubbing, no edema. PHARMACY RESIDENT: Alert, awake, and oriented x2. The patient moves all extremities equally. The patient had an MRI done that showed mild atrophy and minimal chronic periventricular white matter ischemic disease. ASSESSMENT: 1. 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 2. Type 2 diabetes mellitus. 3. Hypertension. PLAN: We will follow carotid Doppler, echocardiogram. Physical therapy was started. Follow Neurology recommendations. Continue current medications. Jose MD [place]
[2018-03-05 07:40] LABS: HEMOGLOBIN 11.7 g/dL (11.0-16.0); MEAN CELL VOLUME 82.3 fL (81.0-99.0); MEAN CORPUSCULAR HEMOGLOBIN 28.2 pg (27.0-31.0); MEAN CORPUSCULAR HGB CONC 34.3 g/dL (33.0-37.0); MEAN PLATELET VOLUME 8.3 fL (7.2-11.7); RBC 4.16 Mil/uL (3.80-5.20); RED CELL DISTRIBUTION WIDTH 14.6 % (11.5-14.5); WHITE BLOOD COUNT 7.8 K/uL (4.8-10.8)
[2018-03-05] MEDS: (Novolog) Insulin Aspart, Recombinant 100 u/ml 10 ml vial SC SCH ×4 (08:14→21:43)
[2018-03-05 08:20] LABS: BLOOD UREA NITROGEN 16 mg/dL (7-17); CALCIUM 9.4 mg/dl (8.6-10.4); GFR NON-AFRICAN AMERICAN > 60
[2018-03-05] MEDS: Pantoprazole 40 mg EC Tab PO SCH (09:13)
[2018-03-05] MEDS ORDERED: Potassium Chloride 20 mEq ER Tab PO ONE (10:00)
[2018-03-06 07:42] LABS: BLOOD UREA NITROGEN 16 mg/dL (7-17); CALCIUM 9.7 mg/dl (8.6-10.4); GFR NON-AFRICAN AMERICAN > 60
[2018-03-06] MEDS: (Novolog) Insulin Aspart, Recombinant 100 u/ml 10 ml vial SC SCH (08:00)
[2018-03-06 08:29] VITALS: BP 161/68; PULSE 55; RESP 18; TEMP 98.1; O2SAT 98
[2018-03-06] MEDS: Pantoprazole 40 mg EC Tab PO SCH (09:57)
--- NOTE | 2018-03-06 13:44 | PN ---
DATE: 03/05/2018 DAILY PROGRESS NOTE SUBJECTIVE: The patient is seen on 03/05/2018. She was not in any cardiopulmonary distress. OBJECTIVE: GENERAL: The patient was cooperative to physical exam. VITAL SIGNS: Blood pressure was 138/78, temperature 97.5, respiratory rate 20, and pulse 59. HEENT: Pupils equal, reactive to light. Normal-appearing mucosa of the conjunctivae, oropharynx and nasal membrane mucosa. NECK: Supple. No JVD. No carotid bruit. No lymph node. No thyromegaly. CHEST AND LUNGS: Bilateral symmetrical expansion. Good air exchange. No rales, no rhonchi. CARDIOVASCULAR SYSTEM: PMI not localized. S1, S2. No additional sounds. ABDOMEN: Normoactive bowel sounds. No tenderness. No organomegaly. No masses. EXTREMITIES: No cyanosis, no clubbing, no edema. INFORMATION TECHNOLOGY AUDIT MANAGER: Alert, awake, oriented x2. No neurological deficit could be appreciated. ASSESSMENT: 1. 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 2. Degenerative spine disease. 3. Hypertension. 4. Type 2 diabetes mellitus. 5. Cancer of breast, status post mastectomy. PLAN: Continue physical therapy and the patient is for subacute rehabilitation. Franco Donovan MD
--- NOTE | 2018-03-06 16:09 | IP.NPCORE ---
Stroke Core Measure - CQM - Stroke Antithrombotic Prescribed: Yes Anticoagulation Prescribed for Atrial Flutter, Atrial Fibrillation and History of:: Not Applicable Statin prescribed: Medical Contraindication Present (allergic to statin) Contraindication/Reason for not providing: Statin Allergy
--- NOTE | 2018-03-07 10:51 | DS ---
REASON FOR ADMISSION: This is an 83-year-old female with history of multiple medical problems, was admitted for progressive worsening of both physical and mental status with forgetfulness. COURSE OF HOSPITALIZATION: The patient was admitted to telemetry floor, and she had neuro check every 4 hours. The patient had neurology consult done by Dr. Montgomery. The patient's symptoms were stable, and the patient was started on physical therapy. MRI of the head done, and it did not show any acute pathology. The patient was found to have progressive dementia with left subcortical dysfunction. The patient was continued on antiplatelets, and she was discharged to [facility] to continue physical therapy, occupational therapy, and deconditioning, and to continue current treatment. FINAL DIAGNOSES: 1. Progressive dementia with left subcortical dysfunction. 2. Hypertension. 3. Type 2 diabetes mellitus. 4. Osteoarthritis. 5. Cancer of breast, status post right mastectomy. Jose MD [facility]
== END 2018-03-06 14:26 | DRG 884 ==
LOC: C.ER 15:39 → C.9E 17:42 → C.6T 18:49 → C.9S 18:49 → C.6T 19:47 → OBSVTOIN 03-03 11:06
PROVIDERS: ADMIT Internal Medicine; ATTEND Internal Medicine
DX: F01.50 Vascular dementia, unspecified severity, without behavioral disturbance, psychotic disturbance, mood disturbance, and anxiety (principal); R42 Dizziness and giddiness; E11.40 Type 2 diabetes mellitus with diabetic neuropathy, unspecified; I10 Essential (primary) hypertension; E78.5 Hyperlipidemia, unspecified; E78.00 Pure hypercholesterolemia, unspecified; K21.9 Gastro-esophageal reflux disease without esophagitis; M19.90 Unspecified osteoarthritis, unspecified site; M47.9 Spondylosis, unspecified; Z85.3 Personal history of malignant neoplasm of breast; Z90.11 Acquired absence of right breast and nipple; Z87.891 Personal history of nicotine dependence; I69.311 Memory deficit following cerebral infarction